=== PATIENT | male | born 1985 | race Caucasian/White ===

== ENCOUNTER 2017-09-09 21:47 | Emergency (ER) | payer OTHER ==
[2017-09-09 22:01] VITALS: BP 147/96; PULSE 90; O2SAT 100
[2017-09-09 22:17] LABS: BASOPHIL % 0.4 % (0.0-0.4); Basophil (Absolute #) 0.05 (0-0.4); Eosinophil % 1.2 % (0.00-5.0); Eosinophil (Absolute #) 0.15 (0-0.5); Granulocyte Absolute (ANC) 8.77 (1.4-6.9); Granulocytes % 70.9 % (36.0-66.0); Hematocrit 43.3 % (42-50); Hemoglobin 14.6 gm/dl (12.5-18.0); Lymphocyte (Absolute #) 2.33 (1.0-4.6); Lymphocytes % 18.8 % (24.0-44.0); Mean Cell Volume 91.4 fl (78-100); Mean Corpuscular Hemoglobin 30.8 pg (26-32); Mean Corpuscular Hgb Concent. 33.7 g/dl (32-36); Mean Platelet Volume 9.4 fl (6-9.5); Monocyte (Absolute #) 1.08 (0.0-1.3); Monocytes % 8.7 % (0.0-12.0); Platelet Count 327 K/mm3 (150-450); Red Blood Count 4.74 M/mm3 (4.1-5.6); White Blood Count 12.4 K/mm3 (4.0-10.5)
[2017-09-09] MEDS ORDERED: BABY ASPIRIN 81 MG CHEW ONE (22:23)
[2017-09-09] MEDS ORDERED: XYLOCAINE HCl Viscous ONE (22:24)
[2017-09-09] MEDS ORDERED: MAALOX ES 30 ML UNIT DOSE ONE (22:24)
[2017-09-09] MEDS: BABY ASPIRIN 81 MG CHEW PO ONE (22:25)
[2017-09-09] MEDS: GI COCKTAIL 45 ML (Maalox/Lidocaine) PO ONE (22:26)
[2017-09-09 22:33] LABS: ALBUMIN 4.4 g/dL (3.5-5.0); ALKALINE PHOSPHATASE 108 U/L (38-126); ANION GAP 14.1 MEQ/L (5-15); BLOOD UREA NITROGEN 11 mg/dL (9-20); CHLORIDE 105 mmol/L (98-107); Calcium 9.3 mg/dL (8.4-10.2); Carbon Dioxide 27 mmol/L (22-30); Creatinine 1 0.87 mg/dL (0.66-1.25); Glucose 120 mg/dL (74-106); Potassium 4.5 mmol/L (3.5-5.1); SGOT/AST 24 U/L (17-59); SGPT/ALT 23 U/L (0-50); SODIUM 141 mmol/L (137-145); Total Protein 7.8 g/dL (6.3-8.2)
--- NOTE | 2017-09-09 22:57 | ERPHSYRPT ---
- History of Present Illness Time Seen by Provider: 09/09/17 22:00 Historian: patient, family Exam Limitations: no limitations Patient Subjective Stated Complaint: chest pain that radiates to his neck, back , left arm. started last week for a couple of days and stopped and has started back up Triage Nursing Assessment: Pt A&O x3, BP 147/96, pulse 103, no edema, c/o pain in left chest that radiates up to his left shoulder, arm, and back, denies hx of cardiac issues, pain since 1200 today, rates pain 07/27 Physician History: 32 Y/O WHITE MALE PRESENTS WITH H/O LEFT SIDE CP THAT IS SHARP, NOT RELATED ANY ACTIVITY AND INITIALLY OCCURRED 2 WEEKS AGO. RESOLVED ON ITS OWN BUT THEN RECURRED TODAY AT NOON. NOT GOING AWAY. PT DENIES INJURY AND DENIES CARDIAC HX. PT STATES HE DOES HAVE A H/O PUDZ Timing/Duration: today Activities at Onset: none Quality: sharpness Location: other (LEFT OF STERNUM SHARP ) Chest Pain Radiation: neck (SHOULDER BLADE), arm Severity of Pain-Max: moderate Severity of Pain-Current: mild Modifying Factors: Improves With: nothing (DID NOT TRY TO TAKE ANYTHING) Associated Symptoms: denies symptoms, No nausea, No vomiting, No palpitations, No abdominal pain, No shortness of breath Prior Chest Pain/Cardiac Workup: no prior cardiac workup Nitro Today/Relief: no nitro taken today Aspirin Treatment Today: no aspirin today Allergies/Adverse Reactions: No Known Drug Allergies Allergy (Verified 09/09/17 22:02) Home Medications: Quetiapine Fumarate [Seroquel] 200 mg PO HS 09/09/17 [History] - Review of Systems Constitutional: No Symptoms Eyes: No Symptoms Ears, Nose, & Throat: No Symptoms Respiratory: No Symptoms Cardiac: Chest Pain Abdominal/Gastrointestinal: No Symptoms, No Abdominal Pain, No Nausea, No Vomiting Genitourinary Symptoms: No Symptoms Musculoskeletal: No Symptoms Skin: No Symptoms Neurological: No Symptoms Psychological: No Symptoms Endocrine: No Symptoms Hematologic/Lymphatic: No Symptoms Immunological/Allergic: No Symptoms All Other Systems: Reviewed and Negative - Past Medical History Pertinent Past Medical History: No Neurological History: No Pertinent History ENT History: No Pertinent History Cardiac History: No Pertinent History Respiratory History: No Pertinent History Endocrine Medical History: No Pertinent History Musculoskeletal History: No Pertinent History GI Medical History: No Pertinent History History: No Pertinent History Psycho-Social History: No Pertinent History Male Reproductive Disorders: No Pertinent History - Past Surgical History Past Surgical History: Yes Neuro Surgical History: No Pertinent History Cardiac: No Pertinent History Respiratory: No Pertinent History Gastrointestinal: No Pertinent History Genitourinary: No Pertinent History Musculoskeletal: Orthopedic Surgery Male Surgical History: No Pertinent History - Social History Smoking Status: Current every day smoker How long have you smoked: 18 years Drug Use: marijuana Patient Lives Alone: No - Nursing Vital Signs Nursing Vital Signs: Initial Vital Signs Temperature 98.9 F 09/09/17 21:51 Pulse Rate 93 H 09/09/17 21:51 Respiratory Rate 21 09/09/17 21:51 Blood Pressure 147/96 09/09/17 21:51 O2 Sat by Pulse Oximetry 100 09/09/17 21:51 Pain Scale Pain Intensity 6 - Physical Exam General Appearance: mild distress, alert, anxiety Eye Exam: PERRL/EOMI, eyes nml inspection Ears, Nose, Throat Exam: normal ENT inspection Neck Exam: normal inspection, non-tender, supple, full range of motion Respiratory Exam: normal breath sounds, chest tenderness, lungs clear, airway intact, No respiratory distress, No diminished breath sounds, No accessory muscle use, No wheezing, No stridor Cardiovascular Exam: regular rate/rhythm, normal heart sounds, normal peripheral pulses Gastrointestinal/Abdomen Exam: soft, normal bowel sounds, No tenderness, No guarding, No rebound Rectal Exam: deferred Back Exam: normal inspection, normal range of motion, No vertebral tenderness Extremity Exam: normal inspection, normal range of motion Neurologic Exam: alert, oriented x 3, cooperative, blank driller II-XII nml as tested, normal mood/affect, nml cerebellar function, nml station & gait Skin Exam: normal color, warm, dry Lymphatic Exam: No adenopathy SpO2 Interpretation: normal SpO2: 100 Oxygen Delivery: Room Air - Course Nursing assessment & vital signs reviewed: Yes EKG Interpreted by Me: RATE (96), Sinus Rhythm, NORMAL AXIS, NORMAL INTERVALS, NORMAL QRS, NORMAL ST-T Ordered Tests: Active Orders 24 hr Category Date Time Status Fisher Pot STAT Care 09/09/17 22:08 Active EKG-ER Only STAT Care 09/09/17 22:08 Active IV Insertion STAT Care 09/09/17 22:08 Active CHEST 1 VIEW (PORTABLE) Stat Exams 09/09/17 22:08 Taken CBC W DIFF Stat Lab 09/09/17 22:05 Completed CMP Stat Lab 09/09/17 22:05 Completed TROPONIN Q3H Lab 09/09/17 22:05 Completed TROPONIN Q3H Lab 09/10/17 01:15 Ordered TROPONIN Q3H Lab 09/10/17 04:15 Ordered TROPONIN Q3H Lab 09/10/17 07:15 Ordered TROPONIN Q3H Lab 09/10/17 10:15 Ordered Medication Summary Discontinued Medications Generic Name Dose Route Start Last Admin Trade Name Eric PRN Reason Stop Dose Admin Al Hydrox/Mg Hydrox/Simethicone Confirm 09/09/17 22:24 Maalox Es 30 Ml Unit Dose Administered 09/09/17 22:25 Dose 30 ml .ROUTE .STK-MED ONE Aspirin 324 mg 09/09/17 22:08 09/09/17 22:25 Baby Aspirin 81 Mg Chew PO 09/09/17 22:09 324 mg STAT ONE Administration Aspirin Confirm 09/09/17 22:23 Baby Aspirin 81 Mg Chew Administered 09/09/17 22:24 Dose 324 mg .ROUTE .STK-MED ONE Lidocaine HCl Confirm 09/09/17 22:24 Xylocaine Hcl Viscous * Administered 09/09/17 22:25 Dose 15 ml .ROUTE .STK-MED ONE Magnesium Hydroxide 45 ml 09/09/17 22:09 09/09/17 22:26 Gi Cocktail 45 Ml (Maalox/Lidocaine) PO 09/09/17 22:10 45 ml STAT ONE Administration Lab/Rad Data: Laboratory Result Diagrams 09/09/17 22:05 09/09/17 22:05 Laboratory Results 09/09/17 09/09/17 09/09/17 Range/Units 22:05 22:05 22:05 WBC 12.4 H (4.0-10.5) K/mm3 RBC 4.74 (4.1-5.6) M/mm3 Hgb 14.6 (12.5-18.0) gm/dl Hct 43.3 (42-50) % MCV 91.4 (78-100) fl MCH 30.8 (26-32) pg MCHC 33.7 (32-36) g/dl RDW 13.0 (11.5-14.0) % Plt Count 327 (150-450) K/mm3 MPV 9.4 (6-9.5) fl Gran % 70.9 H (36.0-66.0) % Eos # (Auto) 0.15 (0-0.5) Absolute Lymphs (auto) 2.33 (1.0-4.6) Absolute Monos (auto) 1.08 (0.0-1.3) Lymphocytes % 18.8 L (24.0-44.0) % Monocytes % 8.7 (0.0-12.0) % Eosinophils % 1.2 (0.00-5.0) % Basophils % 0.4 (0.0-0.4) % Absolute Granulocytes 8.77 H (1.4-6.9) Basophils # 0.05 (0-0.4) Sodium 141 (137-145) mmol/L Potassium 4.5 (3.5-5.1) mmol/L Chloride 105 (98-107) mmol/L Carbon Dioxide 27 (22-30) mmol/L Anion Gap 14.1 (5-15) MEQ/L BUN 11 (9-20) mg/dL Creatinine 0.87 (0.66-1.25) mg/dL Estimated GFR > 60.0 ML/MIN Glucose 120 H (74-106) mg/dL Calcium 9.3 (8.4-10.2) mg/dL Total Bilirubin 0.40 (0.2-1.3) mg/dL AST 24 (17-59) U/L ALT 23 (0-50) U/L Alkaline Phosphatase 108 (38-126) U/L Troponin I < 0.012 (0.000-0.034) ng/mL Serum Total Protein 7.8 (6.3-8.2) g/dL Albumin 4.4 (3.5-5.0) g/dL - Progress Progress: improved, re-examined Air Movement: good Progress Note: 09/09/17 23:29 PT STATES HE IS MUCH BETTER AFTER GI COCKTAIL AND WANTS TO GO HOME.CP RESOLVED Blood Culture(s) Obtained: No Antibiotics given: No Counseled pt/family regarding: lab results, diagnosis, need for follow-up, rad results - Departure Time of Disposition: 23:31 Departure Disposition: Home Clinical Impression: Gastritis Condition: Good Critical Care Time: No Additional Instructions: AVOID FATTY, GREASY, SPICY FOODS. AVOID ALCOHOL AND TOBACCO. FOLLOW UP WITH PRIMARY DOCTOR FOR FURTHER MANAGEMENT Prescriptions: Ranitidine HCl [Zantac] 150 mg PO BID #10 tablet
--- NOTE | 2017-09-10 08:39 | XRAY ---
Indication: Chest pain. Comparison: None Portable chest demonstrates normal heart and lungs with a few incidental tiny calcified granulomas. Bony thorax intact with minimal scoliosis.
== END 2017-09-09 23:49 | disposition home or self-care (01) ==
LOC: ED 21:47
DX: K29.70 Gastritis, unspecified, without bleeding (principal)
CPT/HCPCS: 36415; 71045; 80053; 84484; 85025; 99284; A9270-GY

== ENCOUNTER 2017-11-14 08:21 | Emergency (ER) | payer OTHER ==
[2017-11-14] MEDS ORDERED: Fluor-I-Strip/Ful-Flo OP ONE (08:34)
[2017-11-14] MEDS ORDERED: TETRACAINE 0.5% STERI-UNIT SOL OP ONE (08:34)
[2017-11-14] MEDS ORDERED: Eye-Stream Solution ONE (08:36)
--- NOTE | 2017-11-14 08:36 | ERPHSYRPT ---
- History of Present Illness Time Seen by Provider: 11/14/17 08:36 Source: patient Exam Limitations: no limitations Physician History: Patient is a 32-year-old male complaining of getting a piece of metal in his left eye one week ago while he was working on his car. He was using a clay grinder on the exhaust system. He was not wearing safety glasses. He felt something fall into his eye. His vision is getting worse in his left eye. He is avoiding light. It is tender. He has discharge. He does not wear glasses. His past medical history is unremarkable. He no longer sees a physician. Timing/Duration: week(s) (1) Location: left eye Severity: moderate Apparent Injury: yes Associated Symptoms: pain, burning, sensitivity to light, redness, matting, eyelid swelling, foreign body sensation, blurred vision Visual Assistive Devices: None Chemical Exposure: No Trauma: Yes (FB from metal) Welding Arc/Tanning Bed Exposure: No Allergies/Adverse Reactions: No Known Drug Allergies Allergy (Verified 11/14/17 08:57) Hx Tetanus, Diphtheria Vaccination/Date Given: Yes (3 years ago) Immunizations Up to Date: Yes - Review of Systems Constitutional: No Fever, No Chills Eyes: Eye Pain, Eye Redness, Photophobia, Tearing, Vision Changes, Foreign Body Sensation Ears, Nose, & Throat: No Symptoms Respiratory: No Cough, No Dyspnea Cardiac: No Chest Pain, No Edema, No Syncope Abdominal/Gastrointestinal: No Abdominal Pain, No Nausea, No Vomiting, No Diarrhea Genitourinary Symptoms: No Dysuria Musculoskeletal: No Back Pain, No Neck Pain Skin: No Rash Neurological: No Dizziness, No Focal Weakness, No Sensory Changes Psychological: No Symptoms Endocrine: No Symptoms Hematologic/Lymphatic: No Symptoms Immunological/Allergic: No Symptoms All Other Systems: Reviewed and Negative - Past Medical History Pertinent Past Medical History: No Neurological History: No Pertinent History ENT History: No Pertinent History Cardiac History: No Pertinent History Respiratory History: No Pertinent History Endocrine Medical History: No Pertinent History Musculoskeletal History: No Pertinent History GI Medical History: No Pertinent History History: No Pertinent History Psycho-Social History: No Pertinent History Male Reproductive Disorders: No Pertinent History - Past Surgical History Past Surgical History: Yes Neuro Surgical History: No Pertinent History Cardiac: No Pertinent History Respiratory: No Pertinent History Gastrointestinal: No Pertinent History Genitourinary: No Pertinent History Musculoskeletal: Orthopedic Surgery Male Surgical History: No Pertinent History - Social History Smoking Status: Current every day smoker How long have you smoked: 18 years Drug Use: marijuana Patient Lives Alone: No - Nursing Vital Signs Nursing Vital Signs: Initial Vital Signs Temperature 97.8 F 11/14/17 08:25 Pulse Rate 78 11/14/17 08:25 Respiratory Rate 16 11/14/17 08:25 Blood Pressure 127/98 11/14/17 08:25 O2 Sat by Pulse Oximetry 100 11/14/17 08:25 Pain Scale Pain Intensity 8 - Physical Exam General Appearance: mild distress Eye Exam: right eye: normal inspection, PERRL, left eye: conjunctival inflammation, corneal abrasion, foreign body (tiny forest of metal in central cornea), vision changes Ears, Nose, Throat Exam: normal ENT inspection Neck Exam: normal inspection Respiratory Exam: normal breath sounds Cardiovascular Exam: regular rate/rhythm Gastrointestinal Exam: soft Extremity Exam: normal inspection Neurologic: alert Skin Exam: normal color SpO2 Interpretation: normal Procedures - Eye Procedure Tetracaine Drops Administered: Yes Eye FB Removal: removal w/ needle Remaining Material after FB Removal: none Antibiotic Oinment/Drps Admin: left eye Ordered Tests: Active Orders 24 hr Category Date Time Status Visual Acuity STAT Care 11/14/17 08:37 Ordered Medication Summary Discontinued Medications Generic Name Dose Route Start Last Admin Trade Name Eric PRN Reason Stop Dose Admin Eye Irrigation Solution Confirm 11/14/17 08:36 Eye-Stream Solution Administered 11/14/17 08:37 Dose 30 ml .ROUTE .STK-MED ONE Eye Irrigation Solution 15 ml 11/14/17 08:52 11/14/17 08:54 Eye-Stream Solution OP 11/14/17 08:53 15 ml STAT ONE Administration Fluorescein Sodium Confirm 11/14/17 08:34 Ipsgo-X-Sbqeq/Ful-Edward Administered 11/14/17 08:35 Dose 1 mg OP .STK-MED ONE Fluorescein Sodium 1 mg 11/14/17 08:53 11/14/17 08:55 Ifbbs-W-Gbhka/Ful-Edward OP 11/14/17 08:54 1 mg STAT ONE Administration Tetracaine HCl 4 ml 11/14/17 08:37 11/14/17 08:55 Tetracaine 0.5% Steri-Unit Brianna OP 11/14/17 08:38 4 ml STAT STA Administration Tetracaine HCl Confirm 11/14/17 08:34 Tetracaine 0.5% Steri-Unit Brianna Administered 11/14/17 08:35 Dose 4 ml OP .STK-MED ONE - Progress Progress: improved Progress Note: 11/14/17 09:02 The left eye was anesthetized with tetracaine drops. The small black foreign body was easily removed with a needle. The foreign body was initially found to be in the central cornea. After removal of the foreign body, there was a small depression from where the foreign body had been removed. Fluorcein dye showed corneal abrasion at the site of foreign body removal. The patient tolerated the procedure well. Counseled pt/family regarding: diagnosis, need for follow-up - Departure Time of Disposition: 09:05 Departure Disposition: Home Clinical Impression: Foreign body of eye, external, right Condition: Stable Critical Care Time: No Referrals: DOCTOR,NO FAMILY [Primary Care Provider] - Additional Instructions: You had a tiny foreign body removed from the central surface of your left eye in the ER. Apply 1/2 inch ribbon of Tobrex to times a day in your left eye for [address] 1-2 drops of ofloxacin suspension in your left eye every one to 2 hours while awake for 7 days. Follow-up with an color adviser immediately if the condition worsens. Prescriptions: Ofloxacin [Ocuflox] 2 drops OP PER HOUR #1 bottle
[2017-11-14 08:52] VITALS: O2SAT 100
[2017-11-14] MEDS: Eye-Stream Solution OP ONE (08:54)
[2017-11-14] MEDS: TETRACAINE 0.5% STERI-UNIT SOL OP STA (08:55)
[2017-11-14] MEDS: Fluor-I-Strip/Ful-Flo OP ONE (08:55)
[2017-11-14 10:09] VITALS: BP 125/78; PULSE 72
[2017-11-14] MEDS: NON-FORMULARY ITEM OP ONE (10:10)
== END 2017-11-14 10:12 | disposition home or self-care (01) ==
LOC: ED 08:21
PROC: 08C9XZZ Extirpation of Matter from Left Cornea, External Approach (ICD-10-PCS; principal; 2017-11-14)
DX: T15.82XA Foreign body in other and multiple parts of external eye, left eye, initial encounter (principal)
CPT/HCPCS: 65220; 99283; A9270-GY